=== PATIENT | female | born 1965 | race Caucasian/White ===

== ENCOUNTER 2022-09-27 11:07 | Day surgery (SDC) | payer BC ==
[2022-09-20 15:14] VITALS: BMI 23.3
[2022-09-27 13:56] VITALS: RESP 18; TEMP 97.9
[2022-09-27 13:58] VITALS: BP 131/74; PULSE 65
== END 2022-09-27 12:30 | disposition home or self-care (01) ==
LOC: FASU-ENDO 11:07
PROVIDERS: ATTEND Internal Medicine Gastroenterology
PROC: 0DJD8ZZ Inspection of Lower Intestinal Tract, Via Natural or Artificial Opening Endoscopic (ICD-10-PCS; principal; 2022-09-27 11:34)
DX: Z12.11 Encounter for screening for malignant neoplasm of colon (principal); K57.30 Diverticulosis of large intestine without perforation or abscess without bleeding; K64.1 Second degree hemorrhoids